=== PATIENT | male | born 1960 | race Caucasian/White ===

== ENCOUNTER 2019-05-22 11:24 | Inpatient (IN) | payer OTHER ==
[2019-05-22 12:07] LABS: Protime INR 1.02
[2019-05-22 12:08] LABS: Absolute Lymphocytes (CBC) 1.7 K/uL (0.7-4.9); Basophils % 0.6 % (0-1.3); Eosinophils % 1.2 % (0-4.4); Hematocrit 51.2 % (39.6-49.0); Lymphocytes % 21.1 % (15.3-44.8); MPV 7.6 fL (7.6-11.3); Monocytes % 7.8 % (3.3-12.3)
[2019-05-22] MEDS ORDERED: NA CHLORIDE 0.9% 1,000 ML ONE ×2 (12:08→14:22)
--- NOTE | 2019-05-22 12:10 | RAD REPORT ---
EXAM DESCRIPTION: Anya Single View05/22/2019 11:56 am CLINICAL HISTORY: Chest pain COMPARISON: 2007 FINDINGS: The lungs appear clear of acute infiltrate. The heart is normal size IMPRESSION: No acute abnormalities displayed
[2019-05-22 12:39] LABS: Albumin 3.9 g/dL (3.4-5.0); Bilirubin Direct 0.2 mg/dL (0-0.2); Bilirubin Total 0.6 mg/dL (0.2-1.0); Magnesium 2.3 mg/dL (1.8-2.4); Potassium 3.9 mmol/L (3.5-5.1); Protein, Total 7.1 g/dL (6.4-8.2); Troponin (Emerg Dept Use Only) 0.13 ng/mL (0.0-0.045)
--- NOTE | 2019-05-22 12:48 | EKG ---
Test Date: 2019-05-22 Test Time: 11:32:25 Teller: MAURY MEASUREMENT RESULTS: Intervals: Rate: 54 ND: 196 QRSD: 90 QT: 390 QTc: 369 [place]: P: 66 ND: 196 QRS: 85 T: 37 INTERPRETIVE STATEMENTS: Sinus bradycardia Otherwise normal ECG Compared to ECG 11/23/2007 06:07:38 No significant changes Electronically Signed On 05-22-19 12:47:50 CDT by Maurizio Hutchins
[2019-05-22] MEDS ORDERED: ONDANSETRON 4 MG/2 ML VIAL ONE (13:06)
--- NOTE | 2019-05-22 13:36 | RAD REPORT ---
EXAM DESCRIPTION: CT - Angio Aorta For Dissection - 05/22/2019 1:12 pm CLINICAL HISTORY: Chest pain, back pain COMPARISON: Chest exam May 22 TECHNIQUE: Dynamically enhanced 3 mm thick images of the chest, abdomen, and upper pelvis were obtai jeb during administration of approximately 150mL Isovue 370 IV contrast. Sagittal and coronal reconst ruction images were generated using MIP and reviewed. Exam utilizes a protocol to evaluate entire cou rse of the aorta. All CT scans are performed using dose optimization technique as appropriate and may include automated exposure control or mA/KV adjustment according to patient size. FINDINGS: Aorta is normal in diameter with no dissection or other acute aortic findings. Reconstruct ion images show no significant findings. Pulmonary arteries are normal. No cardiomegaly, pericardial thickening or pericardial effusion. Posterior lung field atelectasis is present. No mass, infiltrate or acute lung parenchymal finding. N o pleural thickening, pleural effusion or pneumothorax. No abnormal mediastinal or hilar mass or lymphadenopathy seen. No chest wall mass or abnormal axillar y lymphadenopathy. Celiac, SMA and renal arteries show no suspicious findings. Right renal artery bifurcates into 2 bran ches shortly after its origin. Solid abdominal viscera and bowel show no significant findings. Small mesenteric and small periaortic lymph nodes are present under 1 centimeter in size. No abnormal lymp hadenopathy. No free air, free fluid or inflammatory stranding. Prostate gland is prominent. Margins are somewhat indistinct. This is likely normal variant for the patient. Prostatitis or mass would not be suspected without supporting clinical/ laboratory findings. IMPRESSION: Negative CT scan of the aorta. Pulmonary arteries are negative as well. No acute CT chest finding. No acute CT abdomen finding identified. Slightly indistinct margins in the prostate gland are probabl y normal range for this patient. Prostatitis or prostate malignancy would not be suspected without her pporting clinical and laboratory findings.
--- NOTE | 2019-05-22 14:08 | ER ---
Nurse's Notes [facility] Name: Harsha Fox Age: 59 yrs Sex: Male : 1960 Arrival Date: 05/22/2019 Time: 11:25 Bed 26 Private MD: Diagnosis: Chest pain, unspecified;Abnormal serum enzyme levels Presentation: 05/22 11:28 Acuity: NURYS 2 aa5 11:28 Presenting complaint: Patient states: "I've had chest pressure for the last 2 days but aa5 today I feel dizzy and lightheaded like I am going to pass out". Pt states "I also got all sweaty just before coming here". Pt appears pale in triage. Transition of care: patient was not received from another setting of care. Onset of symptoms was May 22, 2019. Risk Assessment: Do you want to hurt yourself or someone else? Patient reports no desire to harm self or others. Care prior to arrival: None. 11:28 Method Of Arrival: Ambulatory aa5 14:35 Initial Sepsis Screen: Does the patient meet any 2 criteria? No. Patient's initial ca1 sepsis screen is negative. Does the patient have a suspected source of infection? No. Patient's initial sepsis screen is negative. Historical: - Allergies: 11:28 No Known Allergies; aa5 - Home Meds: 15:22 lisinopril 5 mg Oral tab 1 tab once daily [Active]; rosuvastatin 5 mg oral tab 1 tab ca1 once daily [Active]; Acyclovir 500 mg tab Oral 1 tab [Active]; Cialis oral oral [Active]; Synthroid Oral [Active]; - PMHx: 11:28 Thyroid problem; Hypertension; aa5 - PSHx: 11:28 liver biopsy; aa5 - Immunization history:: Flu vaccine is not up to date. - Social history:: Smoking status: Patient/guardian denies using tobacco. - Ebola Screening: : No symptoms or risks identified at this time. Screenin:10 Abuse screen: Denies threats or abuse. Denies injuries from another. Nutritional ca1 screening: No deficits noted. Tuberculosis screening: No symptoms or risk factors identified. Fall Risk IV access (20 points). Assessment: 13:10 General: Appears in no apparent distress. comfortable, Behavior is calm, cooperative, ca1 appropriate for age. Pain: Complains of pain in chest Pain does not radiate. Pain currently is 3 out of 10 on a pain scale. Quality of pain is described as pressure, Pain began gradually. Neuro: Level of Consciousness is awake, alert, obeys commands, Oriented to person, place, time, situation, Reports dizziness. Cardiovascular: Heart tones S1 S2 present Capillary refill < 3 seconds Patient's skin is warm and dry. Rhythm is sinus rhythm. Cardiovascular: Reports lightheadedness. Respiratory: GI: Abdomen is round non-distended, Bowel sounds present X 4 quads. Abd is soft and non tender X 4 quads. : No deficits noted. No signs and/or symptoms were reported regarding the genitourinary system. EENT: No deficits noted. No signs and/or symptoms were reported regarding the EENT system. Derm: Skin is intact, is healthy with good turgor, Skin is pink, warm \\T\\ dry. Musculoskeletal: Circulation, motion, and sensation intact. Capillary refill < 3 seconds, Range of motion: intact in all extremities. 14:34 Reassessment: Patient appears in no apparent distress at this time. Patient and/or ca1 family updated on plan of care and expected duration. Pain level reassessed. Patient is alert, oriented x 3, equal unlabored respirations, skin warm/dry/pink. Dr. Pearson at bedside Patient states feeling better. 15:34 Reassessment: Patient appears in no apparent distress at this time. Patient and/or ca1 family updated on plan of care and expected duration. Pain level reassessed. Patient is alert, oriented x 3, equal unlabored respirations, skin warm/dry/pink. Awaiting room assignment. 16:35 Reassessment: Patient appears in no apparent distress at this time. Patient and/or ca1 family updated on plan of care and expected duration. Pain level reassessed. Patient is alert, oriented x 3, equal unlabored respirations, skin warm/dry/pink. 17:50 Reassessment: Patient appears in no apparent distress at this time. Patient and/or ca1 family updated on plan of care and expected duration. Pain level reassessed. Patient is alert, oriented x 3, equal unlabored respirations, skin warm/dry/pink. Heart Healthy Diet served. Awaiting room assignment. Vital Signs: 11:28 BP 89 / 53 LA; Pulse 56; Resp 16 S; Temp 96.4(A); Pulse Ox 100% on R/A; Weight 97.52 kg aa5 (R); Height 5 ft. 7 in. (170.18 cm) (R); 11:33 BP 90 / 70 RA; aa5 12:38 BP 107 / 71; Pulse 61; Resp 16; Temp 97.7(O); Pulse Ox 95% on R/A; ae4 13:10 BP 114 / 62; Pulse 82; Resp 15; Pulse Ox 96% on R/A; ca1 14:34 BP 115 / 80; Pulse 79; Resp 16 S; Pulse Ox 95% on R/A; ca1 15:34 BP 121 / 67; Pulse 80; Resp 19 S; Pulse Ox 95% on R/A; ca1 16:35 BP 105 / 67; Pulse 93; Resp 18 S; Pulse Ox 94% on R/A; ca1 17:50 BP 113 / 65; Pulse 72; Resp 15 S; Temp 98(TE); Pulse Ox 94% on R/A; ca1 18:20 BP 114 / 57; Pulse 71; Resp 17; Temp 98; Pulse Ox 96% on R/A; rv 11:28 Body Mass Index 33.67 (97.52 kg, 170.18 cm) aa5 ED Course: 11:25 Patient arrived in ED. rg4 11:33 Roberto Trinidad, CK is Primary Nurse. ae4 11:33 Arm band placed on Patient placed in an exam room, on a stretcher. aa5 11:35 Chris Reece MD is Attending Physician. gs 11:36 EKG done, by area intelligence technician. reviewed by Roberto Fofana MD. at1 11:42 Triage completed. aa5 11:56 X-ray completed. Portable x-ray completed in exam room. Patient tolerated procedure sw well. 11:57 XRAY Chest (1 view) In Process Unspecified. EDMS 13:00 Inserted saline lock: 18 gauge in right antecubital area, using aseptic technique. ca1 ,using aseptic technique. By ED staff Blood collected. 13:10 No provider procedures requiring assistance completed. Patient maintains SpO2 ca1 saturation greater than 95% on room air. 13:10 Patient has correct armband on for positive identification. Placed in gown. Bed in low ca1 position. Call light in reach. Side rails up X2. monitor technician on. Pulse ox on. NIBP on. Warm blanket given. 13:12 CT Aorta for Dissection In Process Unspecified. EDMS 13:30 Inserted saline lock: 22 gauge in left antecubital area, using aseptic technique. ca1 ,using aseptic technique. by medical lab technologist. 14:07 Shiela Pearson MD is Hospitalizing Provider. gs 17:31 Inserted saline lock: 20 gauge in right antecubital area, using aseptic technique. rv 17:59 Patient admitted, IV remains in place. ca1 Administered Medications: 11:55 Drug: NS 0.9% 1000 ml Route: IV; Rate: 1 bolus; Site: right antecubital; ae4 14:00 Follow up: Response: No adverse reaction; IV Status: Completed infusion ca1 12:53 Drug: Zofran 4 mg Route: IVP; Site: right antecubital; ae4 14:16 Follow up: Response: No adverse reaction; Nausea is decreased ca1 14:05 Drug: NS 0.9% 1000 ml Route: IV; Rate: 125 ml/hr; Site: left antecubital; ca1 14:37 Follow up: Response: No adverse reaction; IV Status: Infusion continued upon admission ca1 15:33 Drug: Aspirin Chewable Tablet 324 mg Route: PO; ca1 16:16 Follow up: Response: No adverse reaction ca1 Output: 14:20 Urine: 550ml (Voided); Total: 550ml. ca1 16:35 Urine: 230ml (Voided); Total: 780ml. ca1 Outcome: 14:08 Decision to Hospitalize by Provider. gs 17:59 Admitted to Med/surg accompanied by tech, via stretcher, room 208. ca1 17:59 Condition: stable 17:59 Instructed on the need for admit. 18:21 Patient left the ED. rv Signatures: Dispatcher [employer] EDMS Delaney Wu, RN RN aa5 Ericka Aguilar, flag maker EKG Tat1 Pratibha Aguilar Rubi rg4 Chris Reece MD MD Isidro Matthews RN RN rv Maru Escobedo RN RN ca1 Roberto Trinidad RN RN ae4
--- NOTE | 2019-05-22 14:08 | EDPHYS ---
Physician Documentation [facility] Name: Harsha Fox Age: 59 yrs Sex: Male : 1960 Arrival Date: 05/22/2019 Time: 11:25 Bed 26 Private MD: ED Physician Chris Reece HPI: 05/22 16:52 This 59 yrs old Male presents to ER via Ambulatory with complaints of Chest gs Tightness. 16:52 The patient or guardian reports chest pain that is located primarily in the anterior gs chest wall. Onset: gradually. The pain does not radiate. Associated signs and symptoms: Pertinent positives: nausea, near-syncope, shortness of breath. The chest pain is described as a heaviness. Duration: The patient or guardian reports multiple episodes, the episodes last approximately 10 minute(s). Severity of pain: At its worst the pain was severe in the emergency department the pain has improved markedly. The patient has experienced similar episodes in the past, a few times. Historical: - Allergies: 11:28 No Known Allergies; aa5 - Home Meds: 15:22 lisinopril 5 mg Oral tab 1 tab once daily [Active]; rosuvastatin 5 mg oral tab 1 tab ca1 once daily [Active]; Acyclovir 500 mg tab Oral 1 tab [Active]; Cialis oral oral [Active]; Synthroid Oral [Active]; - PMHx: 11:28 Thyroid problem; Hypertension; aa5 - PSHx: 11:28 liver biopsy; aa5 - Immunization history:: Flu vaccine is not up to date. - Social history:: Smoking status: Patient/guardian denies using tobacco. - Ebola Screening: : No symptoms or risks identified at this time. ROS: 16:52 All other systems are negative. gs Exam: 16:52 Head/Face: Normocephalic, atraumatic. Eyes: Pupils equal round and reactive to light, gs extra-ocular motions intact. Lids and lashes normal. Conjunctiva and sclera are non-icteric and not injected. Cornea within normal limits. Periorbital areas with no swelling, redness, or edema. ENT: Nares patent. No nasal discharge, no septal abnormalities noted. Tympanic membranes are normal and external auditory canals are clear. Oropharynx with no redness, swelling, or masses, exudates, or evidence of obstruction, uvula midline. Mucous membranes moist. Neck: Trachea midline, no thyromegaly or masses palpated, and no cervical lymphadenopathy. Supple, full range of motion without nuchal rigidity, or vertebral point tenderness. No Meningismus. 16:52 Chest/axilla: Normal chest wall appearance and motion. Nontender with no deformity. No lesions are appreciated. 16:52 Constitutional: The patient appears alert, awake, pale. 16:52 Cardiovascular: Rate: bradycardic, Rhythm: regular, Pulses: no pulse deficits are appreciated, Heart sounds: normal. 16:52 ECG was reviewed by the Attending Physician. Vital Signs: 11:28 BP 89 / 53 LA; Pulse 56; Resp 16 S; Temp 96.4(A); Pulse Ox 100% on R/A; Weight 97.52 kg aa5 (R); Height 5 ft. 7 in. (170.18 cm) (R); 11:33 BP 90 / 70 RA; aa5 12:38 BP 107 / 71; Pulse 61; Resp 16; Temp 97.7(O); Pulse Ox 95% on R/A; ae4 13:10 BP 114 / 62; Pulse 82; Resp 15; Pulse Ox 96% on R/A; ca1 14:34 BP 115 / 80; Pulse 79; Resp 16 S; Pulse Ox 95% on R/A; ca1 15:34 BP 121 / 67; Pulse 80; Resp 19 S; Pulse Ox 95% on R/A; ca1 16:35 BP 105 / 67; Pulse 93; Resp 18 S; Pulse Ox 94% on R/A; ca1 17:50 BP 113 / 65; Pulse 72; Resp 15 S; Temp 98(TE); Pulse Ox 94% on R/A; ca1 18:20 BP 114 / 57; Pulse 71; Resp 17; Temp 98; Pulse Ox 96% on R/A; rv 11:28 Body Mass Index 33.67 (97.52 kg, 170.18 cm) aa5 MDM: 11:44 Patient medically screened. gs 16:52 Differential diagnosis: abnormal EKG, acute myocardial infarction, coronary artery gs disease chest wall pain, congestive heart failure thoracic aortic disection. HEART Score: History: Moderately Suspicious (1), ECG: Non specific repolarization disturbance / LBTB / PM (1), Age: > 45 and < 65 years (1), Risk Factors: 1 or 2 risk factors (1), Troponin: > 1 and < 3 x normal limit (1). Data reviewed: vital signs, nurses notes, lab test result(s), EKG, radiologic studies. Counseling: I had a detailed discussion with the patient and/or guardian regarding: the historical points, exam findings, and any diagnostic results supporting the discharge/admit diagnosis, the need for further work-up and treatment in the hospital. Response to treatment: the patient's symptoms have markedly improved after treatment, the patient's symptoms have resolved after treatment, the patient's pain is gone, the patient's condition has returned to base line. 05/22 11:44 Order name: Basic Metabolic Panel; Complete Time: 12:49 05/22 11:44 Order name: CBC with Diff; Complete Time: 12:05/22 11:44 Order name: LFT's; Complete Time: 12:49 05/22 11:44 Order name: Magnesium; Complete Time: 12:05/22 11:44 Order name: NT PRO-BNP; Complete Time: 12:05/22 11:44 Order name: PT-INR; Complete Time: 12:05/22 11:44 Order name: Troponin (emerg Dept Use Only); Complete Time: 12:49 05/22 11:44 Order name: XRAY Chest (1 view); Complete Time: 12:22 05/22 11:44 Order name: EKG; Complete Time: 11:46 05/22 12:50 Order name: CT Aorta for Dissection; Complete Time: 13:47 05/22 11:44 Order name: Cardiac monitoring; Complete Time: 11:05/22 11:44 Order name: EKG - Nurse/Tech; Complete Time: 11:05/22 11:44 Order name: IV Saline Lock; Complete Time: 11:50 05/22 11:44 Order name: Labs collected and sent; Complete Time: :05/22 11:44 Order name: O2 Per Protocol; Complete Time: 11:50 05/22 11:44 Order name: O2 Sat Monitoring; Complete Time: :05/22 17:29 Order name: Diet Heart Healthy; Complete Time: 17:29 em1 EC:52 Rate is 54 beats/min. Rhythm is regular. ME interval is normal. QRS interval is normal. gs QT interval is normal. T waves are Flattened in lead III. No ST changes noted. Clinical impression: Abnormal EKG without significant change. Interpreted by me. Administered Medications: 11:55 Drug: NS 0.9% 1000 ml Route: IV; Rate: 1 bolus; Site: right antecubital; ae4 14:00 Follow up: Response: No adverse reaction; IV Status: Completed infusion ca1 12:53 Drug: Zofran 4 mg Route: IVP; Site: right antecubital; ae4 14:16 Follow up: Response: No adverse reaction; Nausea is decreased ca1 14:05 Drug: NS 0.9% 1000 ml Route: IV; Rate: 125 ml/hr; Site: left antecubital; ca1 14:37 Follow up: Response: No adverse reaction; IV Status: Infusion continued upon admission ca1 15:33 Drug: Aspirin Chewable Tablet 324 mg Route: PO; ca1 16:16 Follow up: Response: No adverse reaction ca1 Disposition: 05/22/19 14:08 Hospitalization ordered by Shiela Pearson for Observation. Preliminary diagnosis are Chest pain, unspecified, Abnormal serum enzyme levels. - Bed requested for Telemetry/MedSurg (observation). - Status is Observation. rv - Condition is Stable. - Problem is new. - Symptoms have improved. UTI on Admission? No Signatures: Dispatcher [employer] EDMS Miladys Pierre RN RN dw Delaney Wu RN RN aa5 Chris Reece MD MD Isidro Matthews RN RN rv Maru Escobedo RN RN ca1 Roberto Trinidad RN RN ae4 Corrections: (The following items were deleted from the chart) 17:49 14:08 Hospitalization Ordered by Shiela Pearson MD for Observation. Preliminary diagnosis dw is Chest pain, unspecified; Abnormal serum enzyme levels. Bed requested for Telemetry/MedSurg (observation). Status is Observation. Condition is Stable. Problem is new. Symptoms have improved. UTI on Admission? No. 18:21 17:49 05/22/2019 14:08 Hospitalization Ordered by Shiela Pearson MD for Observation. rv Preliminary diagnosis is Chest pain, unspecified; Abnormal serum enzyme levels. Bed requested for Telemetry/MedSurg (observation). Status is Observation. Condition is Stable. Problem is new. Symptoms have improved. UTI on Admission? No. dw
[2019-05-22] MEDS ORDERED: ASPIRIN 81 MG CHEWABLE TABLET ONE (15:48)
[2019-05-22] MEDS ORDERED: NITROGLYCERIN 0.4 MG/TAB SL PRN (19:21)
[2019-05-22] MEDS ORDERED: ACETAMINOPHEN 500 MG TAB PO PRN (19:21)
[2019-05-22] MEDS ORDERED: MORPHINE 4 MG/ML SYR IV PRN (19:21)
[2019-05-22] MEDS: ATORVASTATIN 40 MG TAB PO SCH (21:22)
[2019-05-22] MEDS: METOPROLOL TAR 50 MG TAB PO SCH (21:22)
--- NOTE | 2019-05-23 00:18 | HP ---
Date of Admission: 05/22/2019 Chief Complaint: Fatigue, near syncope. Code Status: Full. Primary Care Physician: None. Consultants: Dr. Hutchins, Cardiology. History Of Present Illness: The patient is a 59-year-old male with past medical history of hypertension, hypothyroidism, hyperlipidemia, who is on testosterone replacement therapy, comes in with fatigue, generalized weakness, and near syncopal episode. The patient was in his usual state of health until day of admission when the patient was at work, started feeling pale, had some generalized weakness, diaphoresis. He took off from work and decided to come to the hospital. On his way in the car, had a near syncopal episode, pulled over, felt a little bit better and felt clammy, had some diaphoresis. Complained of some generalized pain in both of his arms. No specific chest pain. No shortness of breath. The patient felt nauseous. No vomiting, fever, or chills. The patient's symptoms are constant, moderate, progressively worsening. He arrived to the ER. He was found to be hypotensive with a blood pressure of 89/50. His workup revealed a creatinine level of 1.31. Troponin was 0.13. EKG showed sinus bradycardia. The patient was given IV fluids. Blood pressure improved. He was then referred for admission. When seen in the ER, he was awake, alert, oriented x3, in some mild distress. Past Medical History: Hypertension, hypothyroidism, hyperlipidemia. The patient does have prostate enlargement, erectile dysfunction, and herpes, currently on valacyclovir to prevent shingles. Past Surgical History: Hernia repair. Allergies: NO KNOWN DRUG ALLERGIES. Medications: List reviewed. Social History: The patient denies any tobacco use, alcohol use, or illicit drug use. Independent in his activities of daily living. Family History: Mom of heart attack at age of 51. Dad also has coronary artery disease, prostate cancer, bladder cancer. Sister has throat cancer. Review of Systems: Ten point system reviewed, negative except as per HPI. Physical Examination: Vital Signs: Blood pressure 89/53, pulse 56, respirations 16, temperature 96.4 , pulse ox is 100% on room air. General: Awake, alert, oriented x3. Ill-appearing, obese male. BMI 33. HEENT: Normocephalic, atraumatic. PERRLA. EOMI. Dry mucous membranes. Oropharynx is clear. Conjunctivae are anicteric. Neck: Supple. No JVD. Trachea midline. CV: S1, S2. Regular rate and rhythm. Peripheral pulses present. Respiratory: Moving air well bilaterally. No wheezing or stridor. No use of accessory muscles. Gastrointestinal: Abdomen is soft, nontender, nondistended. Positive bowel sounds. No guarding or rigidity. Extremities: No clubbing, cyanosis, or edema. No calf tenderness. Neuro: Cranial nerves 2 through 12 intact grossly. No focal neurological deficits. Speech is normal. Skin: No rashes. Normal skin turgor. Psych: Mood is okay. Affect is full. Insight and judgment are good. Laboratory Data: Sodium 140, potassium 3.9, chloride 105, CO2 25, BUN 14, creatinine 1.31, glucose 129, calcium 8.6, magnesium 2.3, troponin 0.13. WBC 8.2, H and H 18.1/51.2, platelets 312, neutrophils 69%. INR is 1.02. CT scan aortic dissection shows negative CT scan of the aorta, pulmonary arteries are negative as well. No acute CT chest finding. No acute CT abdomen finding identified, slightly indistinct margins in the prostate gland are probably normal in range for this patient. Assessment And Plan: A 59-year-old male with 1. Near syncopal episode, likely due to low blood pressure. We will start on IV fluids. We will hold lisinopril and other antihypertensives for now. Unclear etiology, may be due to acute dehydration. 2. Acute dehydration. We will continue with IV fluids. We will place him on normal saline at 125 mL/h. 3. Elevated troponin level, rule out acute coronary syndrome. We will repeat cardiac enzymes. Obtain echocardiogram to rule out wall motion abnormality. We will consult Cardiology for now. Chest pain guidelines. He has elevated creatinine level. We will hold lisinopril. Start on low-dose beta-vargas, aspirin. The patient does have hypertension and hyperlipidemia, has first- degree family member with premature from myocardial infarction. 4. Elevated hematocrit level. Apparently, this had been worked up patient states secondary to his testosterone treatments. We will continue with IV fluids and monitor hemoglobin and hematocrit. This may be contributing to his elevated cardiac enzymes. 5. Acute hypotension, likely due to dehydration. Continue with fluid resuscitation. 6. Acute kidney injury, unknown baseline, likely secondary to acute hypotension. We will continue with IV fluids and monitor. 7. Obesity, body mass index greater than 30, counseled. 8. Mixed hyperlipidemia, continue statin. 9. Hypothyroidism, continue Synthroid. 10. Deep venous thrombosis prophylaxis with Lovenox. Plan: Admit the patient to Med-Surg, place as observation. JUMA Voice ID: [id number] MARISA
[2019-05-23] MEDS: NA CHLORIDE 0.9% 1,000 ML IV SCH ×4 (01:02→18:01)
[2019-05-23 05:26] LABS: Urine Appearance CLEAR; Urine Bilirubin NEGATIVE (NEG); Urine Blood NEGATIVE (NEG); Urine Color YELLOW; Urine Glucose NEGATIVE (NEG); Urine Protein NEGATIVE (NEG); Urine Specific Gravity 1.015 (1.005-1.030); Urine Urobilinogen 0.2 mg/dL (0.2-1.0); Urine pH 5.5 (5.0-7.0)
[2019-05-23 05:35] LABS: Urine Microscopic Reflex NO UMIC
[2019-05-23 06:11] LABS: Absolute Lymphocytes (CBC) 2.1 K/uL (0.7-4.9); Basophils % 0.8 % (0-1.3); Eosinophils % 1.5 % (0-4.4); Hematocrit 48.2 % (39.6-49.0); Lymphocytes % 22.7 % (15.3-44.8); MPV 7.4 fL (7.6-11.3); Monocytes % 9.1 % (3.3-12.3); RBC Red Blood Cell Count 5.09 M/uL (4.33-5.43)
[2019-05-23 06:26] LABS: Potassium 4.1 mmol/L (3.5-5.1)
[2019-05-23] MEDS ORDERED: ENOXAPARIN 100 MG/ML SYR SQ SCH (09:00)
[2019-05-23] MEDS: ASPIRIN EC 81 MG TAB PO SCH (09:25)
[2019-05-23] MEDS: METOPROLOL TAR 50 MG TAB PO SCH ×2 (09:25→20:34)
[2019-05-23] MEDS ORDERED: HEPA 1000U/500MLS 1,000 UNIT/500 ML BAG IV ONE (10:32)
[2019-05-23] MEDS ORDERED: MIDAZOLAM HCL 2 MG/2 ML INJ ONE (10:32)
[2019-05-23] MEDS ORDERED: ATROPINE SULF 1 MG/10 ML SYR IV ONE (10:32)
[2019-05-23] MEDS ORDERED: NA CHLORIDE 0.9% 50 ML ONE (10:32)
[2019-05-23] MEDS ORDERED: FENTANYL CITR 100 MCG/2 ML ONE (10:32)
[2019-05-23] MEDS ORDERED: PRASUGREL (EFFIENT) 10 MG TAB ONE (11:41)
[2019-05-23] MEDS ORDERED: ASPIRIN 325 MG TAB ONE (11:42)
[2019-05-23] MEDS ORDERED: ACETYLCYST 20% 4 ML VIAL IH ONE (12:00)
--- NOTE | 2019-05-23 14:25 | PN ---
Date of Progress Note: 05/23/2019 Subjective: The patient seen and examined. Chart reviewed and case discussed with RN and Dr. Hutchins. The patient went for cardiac cath today, was found to have multiple occlusion, including 99% RCA blockage. Case also discussed with Dr. Luo. Medications: List reviewed. Physical Examination: Vital Signs: Temperature 98.1, heart rate 55, blood pressure 130/83, respirations 15, O2 95% on room air. General: Awake, alert, oriented x3, not in any acute distress, obese male. CV: S1 and S2. Regular rate and rhythm. Peripheral pulses present. Respiratory: Moving air well bilaterally. No wheezing. Gastrointestinal: Abdomen is soft, nontender, nondistended. Positive bowel sounds. Extremities: No clubbing, cyanosis, or edema. Neurologic: Nonfocal. Laboratory Data: Sodium 141, potassium 4.1, chloride 108, CO2 27, BUN 11, creatinine 1.16, glucose 102, calcium 8.6, triglycerides 137, cholesterol 141, LDL 80, HDL 34. WBC 9.3, H and H 16.5 and 48.2, platelets 238, neutrophils 65%. Assessment And Plan: A 59-year-old male with: 1. Prw-QS-nlphyyotn myocardial infarction. The patient is status post cardiac catheterization with multiple occlusions including 99% in the RCA. Appreciate Dr. Hutchins's input. We will continue to monitor including cath site. 2. Near syncopal episode, likely due to hypotension. Blood pressure is improved. 3. Acute dehydration, resolved with just IV fluids. 4. Acute kidney injury, improved, likely secondary to dehydration, prerenal azotemia. Okay to resume lisinopril. 5. Polycythemia. The patient has never been diagnosed with polycythemia vera , likely this is related to testosterone. I spoke with Dr. Luo. She recommends outpatient followup and workup for polycythemia vera after patient has stop testosterone. 6. Acute hypotension, improved. 7. Obesity, BMI greater than 30, counseled. 8. Mixed hyperlipidemia. Continue statin. 9. Hypothyroidism. We will continue Synthroid. 10. Deep venous thrombosis prophylaxis with Lovenox. Plan: Likely discharge in a.m. if continues to improve. The patient has been counseled that he will need to stop testosterone completely, which is putting him at risk for further thrombotic events including TN, stroke, PE, DVT. SA/ABDULAZIZ Voice ID: [id number] Report ID: [id number] MARISA
--- NOTE | 2019-05-23 15:34 | CON ---
Date of Consultation: 05/22/2019 Reason For Consultation: Non-ST elevation myocardial infarction. History Of Present Illness: Mr. oFx is 59-year-old, has a history of hypertension, dyslipidemi a, hepatitis C in the past that is cured, hypothyroidism. Has had multiple phlebotomy episodes for e levated hemoglobin, but has never been told that he has any polycythemia. Never seen a rn perinatal. Came in with substernal chest pressure radiating to the back, shortness of breath, diaphoresis. He has a very strong family history of heart disease. His mom at 61 from CAD. His creatin ine was 1.32. His troponin was 0.13, consistent with a non-ST elevation myocardial infarction. Past Medical History: As stated above. Allergies: NONE. Review of Systems: Negative. Social History: Negative for tobacco. Family History: Positive for heart disease. Medications: At home include lisinopril, Crestor, Synthroid, acyclovir, and Cialis. Physical Examination: Vital Signs: Stable. He was afebrile. He was in no acute distress. HEENT: Negative. Neck: Supple without any bruit, lymphadenopathy, JVD, or thyromegaly. Chest: Clear to auscultation and percussion. Cardiac: Exam revealed a regular rhythm and rate. No murmurs, gallops, or rubs. Abdomen: Benign. Extremities: Revealed no clubbing, cyanosis, or edema. Diagnostic Data: Troponin is 0.13. Creatinine is 1.32. Chest x-ray was normal. EKG shows sinus br adycardia. Hemoglobin 18.1 with hematocrit of 51. CT angiogram of the chest was negative. Impression And Plan: The patient with hypertension, dyslipidemia, strong family history of heart dis ease, abnormal troponin, symptoms of chest pain with neck radiation, diaphoresis, and presyncope for 2-3 days intermittently. An echocardiogram is pending. I think Mr. Fox deserves a left heart catheterization to define his coronary anatomy. He understands the risk and the benefits of the proc edure and he agrees to proceed. His other problems include hepatitis C for which he has been treated in the past. Has had a liver biopsy in the past. He has hypothyroidism that has been treated with Synthroid. His renal function is not normal, probably have stage 2 chronic renal disease and we will follow up on that. He also has issues with occasional phlebotomy for his elevated hematocrit. I di scussed the case with Dr. Pearson. It may be worth having Hematology see him. SVETA/ABDULAZIZ Voice ID: [id number] Report ID: [id number]
[2019-05-23] MEDS: ATORVASTATIN 40 MG TAB PO SCH (20:34)
--- NOTE | 2019-05-23 22:56 | OP ---
Date of Procedure: 05/23/2019 Surgeon: Maurizio Hutchins MD Director Of Advertising Sales: Anitha Galvan. Admitted to Dr. Pearson on 05/22/2019 for non-ST elevation myocardial infarction. The patient had a pr ocedure on 05/23/2019. Indication: Non-ST elevation myocardial infarction. Description Of Procedure: The patient was prepped and draped in the routine sterile fashion and give n 4 mg of Versed and 50 of fentanyl for sedation. The procedure was left heart catheterization, desmond ctive coronary arteriogram, angioplasty, and stent of the RCA. The patient was sedated, prepped and draped in the routine sterile fashion. A 6-Urdu sheath introduced in the right common femoral rosa ry. Angio-Seal was used to close the case. Angiography there was normal. Selective coronary arteri ogram using Alessandra catheter showed 100% first diagonal, 99% occlusion of the mid RCA that is right d ominant with ALLEN 1 flow. There was a 70% distal circumflex and OM stenosis. There were some modera te plaquing in the PDA posterolateral and LAD. A 6-Urdu guide JR4 with side holes was used. A Cou gar wire 0.14 was used to cross the lesion. The lesion was pre-dilated with a 2.5 x 12 Emerge at mul tiple dilatation at 8 atmosphere maximum. The Synergy stent was placed at 3.0 x 16 at 14 atmosphere. There was 0% residual with ALLEN-3 flow. No complication. Blood loss was 5 cc. Postoperative Diagnosis: CAD, status post successful PTCA and stent of the RCA. Mobile Pet Groomer: Maurizio Hutchins M.D. Anesthesia: Total conscious sedation was 45 minutes. The patient received Angiomax, aspirin, and Effient during the procedure. Postoperatively, he can go home tomorrow. He should be on statin. It will be Lipitor 80 mg daily, aspirin, and Plavix as well as metoprolol and we will see hi m after discharge in 2 weeks. SVETA/ABDULAZIZ Voice ID: [id number] Report ID: [id number]
[2019-05-24] MEDS: NA CHLORIDE 0.9% 1,000 ML IV SCH (03:00)
[2019-05-24] MEDS ORDERED: LEVOTHYROXINE SOD 0.1 MG TAB PO SCH (06:00)
[2019-05-24] MEDS ORDERED: TAMSULOSIN 0.4 MG SR CAP PO SCH (09:00)
[2019-05-24] MEDS ORDERED: VALACYCLOVIR 500 MG TAB PO SCH (09:00)
[2019-05-24] MEDS ORDERED: LISINOPRIL 5 MG TAB PO SCH (09:00)
[2019-05-24] MEDS: ASPIRIN EC 81 MG TAB PO SCH (09:29)
[2019-05-24] MEDS: METOPROLOL TAR 50 MG TAB PO SCH (09:29)
--- NOTE | 2019-05-24 23:36 | DS ---
Date of Discharge: 05/24/2019 Consultants: Dr. Hutchins with Cardiology. Procedures: Cardiac catheterization on 05/23/2019. The patient had successful PTCA and stent of the RCA. Admitting Diagnoses: 1.Near syncopal episode. 2.Elevated troponin level, rule out ACS. 3.Acute dehydration. 4.Elevated hematocrit level. 5.Acute hypertension. 6.Acute kidney injury. 7.Obesity. 8.Mixed hyperlipidemia. 9.Hypothyroidism. Discharge Diagnoses: 1.NSTEMI, status post stent in the RCA. 2.Near syncopal episode due to hypertension. 3.Acute dehydration, resolved. 4.Acute kidney injury, resolved. 5.Polycythemia likely related to testosterone supplement. 6.Acute hypertension, resolved. 7.Obesity, BMI 33. 8.Mixed hyperlipidemia, on statin. 9.Hypothyroidism, Synthroid. 10.Low testosterone, on testosterone supplements. Hospital Course: The patient is a 59-year-old male with past medical history of low testosterone, hy pothyroidism, who comes in with hypertension, near syncopal episode. The patient did have some eleva jennifer troponin on initial workup. He never complained of any chest pain, did complain of some generali ze malaise and weakness. The patient was admitted to the hospital, worked up for acute coronary synd joshua. The patient is having NSTEMI. He was taken to the vat house laborer by Dr. Hutchins. His cardiac cath showed RCA blockage, which was stented. The patient did well post cath. He did not develop any chris dina in his cath site. He had good sensation in lower extremity. He was counseled extensively regar ding his testosterone supplements. He understands that his prothrombotic can cause stroke, heart att ack, DVT, PE, amongst other side effects. He needs to have the implant removed by his urologist as s oon as possible due to his risk. Regarding his polycythemia, the patient will need to see Hematology. Case was discussed with Dr. Bon montes who recommended outpatient followup and repeat hematocrit level after the patient has been off test osterone for a week or 2 and further workup if necessary. The patient has required phlebotomy in the past. The patient's kidney function normalized with IV fluids. His blood pressure and dehydration also imp roved. The patient was doing well. His symptoms resolved. He is feeling good. Did not have any co mplaints. He was able to be discharged in a stable condition once cleared from Cardiology standpoint . Followup: Follow up with primary care physician in 2-3 days. Follow up with data developer, Dr. Serge berg, in 2 weeks. Follow up with wildlife management professor, Dr. Luo, in 2 weeks. Return to ER for worsening condi tion. Diet: Heart healthy. Activity: As tolerated. Medications: As per medication reconciliation list. Physical Examination: General: Awake, alert, oriented x3, obese male. CV: S1, S2. No murmurs. Respiratory: Moving air well bilaterally. Abdomen: Soft, nontender, nondistended. Positive bowel sounds. Extremities: No clubbing, cyanosis, or edema. Neuro: Nonfocal. Total time spent discharging the patient was 35 minutes. JUMA Voice ID: [id number] Report ID: [id number]
== END 2019-05-24 12:00 | disposition home or self-care (01) | DRG 247 ==
LOC: ER 11:24 → ERHOLD 14:14 → 2ND 18:00 → OBSVTOIN 05-23 10:21
PROVIDERS: ADMIT Family Medicine; ATTEND Family Medicine
PROC: 027034Z Dilation of Coronary Artery, One Artery with Drug-eluting Intraluminal Device, Percutaneous Approach (ICD-10-PCS; principal; 2019-05-23)
PROC: 4A023N7 Measurement of Cardiac Sampling and Pressure, Left Heart, Percutaneous Approach (ICD-10-PCS; 2019-05-23)
PROC: B201YZZ Plain Radiography of Multiple Coronary Arteries using Other Contrast (ICD-10-PCS; 2019-05-23)
PROC: B205YZZ Plain Radiography of Left Heart using Other Contrast (ICD-10-PCS; 2019-05-23)
DX: I21.4 Non-ST elevation (NSTEMI) myocardial infarction (principal); N17.9 Acute kidney failure, unspecified; I10 Essential (primary) hypertension; R55 Syncope and collapse; E86.0 Dehydration; D75.1 Secondary polycythemia; E66.9 Obesity, unspecified; Z68.33 Body mass index [BMI] 33.0-33.9, adult; E78.2 Mixed hyperlipidemia; E03.9 Hypothyroidism, unspecified; E29.1 Testicular hypofunction; I25.10 Atherosclerotic heart disease of native coronary artery without angina pectoris; Z79.899 Other long term (current) drug therapy
CPT/HCPCS: 36415; 71045; 71275; 74175; 80048; 80061; 80076; 81003; 83735; 83880; 84484; 85025; 85347; 85610; 92928; 93005; 93454; 94760; 96361; 96374; 99285; C1725; C1760; C1893; G0378; J0583; J2250; J2405; J3010; J7030; Q9967

== ENCOUNTER 2021-10-02 15:36 | Emergency (ER) | payer OTHER ==
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
[2021-10-02 17:40] VITALS: TEMP 97.4
[2021-10-02 17:43] VITALS: BP 153/92; O2SAT 100
== END 2021-10-02 17:33 | disposition home or self-care (01) ==
LOC: ER 15:36
DX: M54.2 Cervicalgia (principal); M79.605 Pain in left leg; V49.40XA Driver injured in collision with unspecified motor vehicles in traffic accident, initial encounter; I10 Essential (primary) hypertension
CPT/HCPCS: 99284